=== PATIENT | male | born 1970 | race Caucasian/White ===

== ENCOUNTER → 2016-11-03 | Outpatient (CLI) | payer OTHER ==
--- NOTE | 2016-11-04 09:27 | MR ---
EXAMINATION TYPE: MR brain wo con DATE OF EXAM: 11/03/2016 5:26 PM COMPARISON: NONE HISTORY: Dizziness, hx of multiple head injuries, LOC, forgetfulness COMPARISON: 12/21/2014 CT brain T1-weighted sagittal, T2, FLAIR, and diffusion axial, and T2 coronal coronal views of the brain are s ubmitted. There is no evidence of acute ischemia. The ventricles, basal cisterns, and sulci overlying the conv exities are consistent with the patient's age. There is no mass effect. Craniocervical junction maintained. Sella turcica has a normal appearance. No cerebellopontine angle mass. Changes of chronic sinusitis noted. WHITE MATTER: Approximate 8 areas of abnormal signal within the white matter large is seen within the left parietal white matter measuring 7 mm. No lesions perpendicular to ventricular system. No callosal lesions. IMPRESSION: 1. No acute intracranial process. 2. Mild chronic sinusitis. 3. Very mild white matter changes are nonspecific. BE seen with migraine headaches, hypertension, rem ote microvascular ischemia. Demyelinating process not entirely excluded. Correlate clinically.
== END | disposition home or self-care (01) ==
LOC: RADMRIMAIN 16:32
PROVIDERS: ATTEND Internal Medicine
DX: R55 Syncope and collapse (principal)
CPT/HCPCS: 70551

== ENCOUNTER → 2019-05-09 | Outpatient (CLI) | payer OTHER ==
--- NOTE | 2019-05-09 17:49 | XR ---
EXAMINATION TYPE: XR Hip Complete LT DATE OF EXAM: 05/09/2019 COMPARISON: NONE HISTORY: 48 year-old male left hip pain TECHNIQUE: 2 views FINDINGS: Moderate to severe superolateral narrowing of hip joint space with subchondral sclerosis and cystic c hange especially along the acetabular roof. No acute fracture, subluxation, or dislocation. IMPRESSION: Moderate to severe left hip OA.
== END | disposition home or self-care (01) ==
LOC: RADXRYALE 14:47
PROVIDERS: ATTEND Internal Medicine
DX: M16.12 Unilateral primary osteoarthritis, left hip (principal)
CPT/HCPCS: 73502

== ENCOUNTER → 2019-05-10 | Outpatient (CLI) | payer OTHER ==
--- NOTE | 2019-05-10 11:50 | XR ---
EXAMINATION TYPE: XR lumbosacral spine min 4V DATE OF EXAM: 05/10/2019 CLINICAL HISTORY: pain COMPARISON: NONE TECHNIQUE: Frontal, lateral, and oblique images of the lumbar spine are obtained. FINDINGS: There are 5 lumbar type vertebral bodies identified. The lumbar spine shows satisfactory alignment without evidence of acute fracture or dislocation. Vertebral body heights are within normal limits. Moderate degenerative disc space narrowing and spondylosis. Facet joint arthropathy. The o verlying soft tissue appears unremarkable. IMPRESSION: No acute fracture or dislocation is seen in the lumbar spine.ICD 10 NO FRACTURE, INITIAL EVALUATION
== END | disposition home or self-care (01) ==
LOC: RADXRYALE 11:31
PROVIDERS: ATTEND Internal Medicine
DX: M54.5 Low back pain (principal)
CPT/HCPCS: 72110

== ENCOUNTER → 2019-09-22 | Outpatient (CLI) | payer OTHER ==
--- NOTE | 2019-09-22 16:18 | XR ---
EXAMINATION TYPE: XR sacroiliac joint comp BILAT DATE OF EXAM: 09/22/2019 COMPARISON: NONE HISTORY: Pain TECHNIQUE: 3 views of the SI joints submitted. FINDINGS: Sacroiliac joints are symmetric bilaterally. No evidence for abnormal widening or narrowing . No fracture or bony destructive process seen. Large geode formation supra-acetabular region left hi p with moderate disc degenerative change noted. IMPRESSION: No evidence for sacroiliitis.
== END | disposition home or self-care (01) ==
LOC: RADXRYALE 15:27
DX: M54.9 Dorsalgia, unspecified (principal); R76.8 Other specified abnormal immunological findings in serum
CPT/HCPCS: 72202

== ENCOUNTER 2019-10-14 10:57 | Emergency (ER) | payer OTHER ==
[2019-10-14 11:06] VITALS: RESP 16; TEMP 97.9
[2019-10-14] MEDS ORDERED: ONDANSETRON 4 MG/2 ML VIAL IVP STA (11:19)
[2019-10-14] MEDS ORDERED: KETOROLAC 30 MG/ML 1 ML VIAL IVP STA (11:19)
[2019-10-14] MEDS ORDERED: SODIUM CHLORIDE 0.9% 1,000 ML IV STA (11:19)
[2019-10-14 11:49] LABS: Basophils % (A) 1 %; Eosinophils # (A) 0.4 k/uL (0-0.7); Eosinophils % (A) 5 %; HCT 46.6 % (39.0-53.0); HGB 15.2 gm/dL (13.0-17.5); Lymphocytes # (A) 1.5 k/uL (1.0-4.8); Lymphocytes % (A) 19 %; MCH 26.6 pg (25.0-35.0); MCHC 32.7 g/dL (31.0-37.0); MCV 81.2 fL (80.0-100.0); Mean Platelet Volume 7.8; Monocytes # (A) 0.6 k/uL (0-1.0); Monocytes % (A) 8 %; Neutrophils # (A) 5.1 k/uL (1.3-7.7); Neutrophils % (A) 66 %; Platelet Count 259 k/uL (150-450); RBC 5.74 m/uL (4.30-5.90); RDW 14.7 % (11.5-15.5); WBC 7.8 k/uL (3.8-10.6)
[2019-10-14 12:13] LABS: Albumin 4.4 g/dL (3.5-5.0); Calcium 9.6 mg/dL (8.4-10.2); Potassium 4.7 mmol/L (3.5-5.1); Total Bilirubin 0.7 mg/dL (0.2-1.3); Total Protein 7.6 g/dL (6.3-8.2)
[2019-10-14 12:18] LABS: Appearance,Urine Clear (Clear); Bilirubin,Urine Negative (Negative); Blood,Urine Negative (Negative); Color,Urine Light Yellow; Glucose,Urine (UA) Negative (Negative); Ketones,Urine Negative (Negative); Leukocyte Esterase,Urine Negative (Negative); Nitrite,Urine Negative (Negative); Protein,Urine Negative (Negative); Specific Gravity,Urine 1.009 (1.001-1.035); Urobilinogen,Urine <2.0 mg/dL (<2.0)
--- NOTE | 2019-10-14 12:20 | ED ---
Abdominal Pain HPI - General Chief Complaint: Abdominal Pain Stated Complaint: poss kidney stone/abdominal pain Time Seen by Provider: 10/14/19 11:14 Source: patient Mode of arrival: ambulatory Limitations: no limitations - History of Present Illness Initial Comments: Patient is a 49-year-old male presenting to emergency Department with complaints of right-sided abdominal pain that started early this morning. Patient states the pain has been intermittent and is mostly on his right side with radiation into his right back. He is also complaining of urinary frequency and urgency. No hematuria. Patient states the pain is very sharp and severe at times and then dissipates. Patient denies any abdominal surgeries. He denies history of kidney stones. He admits to nausea, no vomiting or diarrhea. He denies any fever or chills. Denies chest pain, short of breath. He has no other complaints at this time. Upon arrival to the ER his vital signs are stable. - Related Data Home Medications Medication Instructions Recorded Confirmed Albuterol Inhaler [Ventolin Hfa 2 puff INHALATION RT-QID PRN 12/21/14 12/22/14 Inhaler] Atorvastatin [Lipitor] 40 mg PO HS 12/21/14 12/22/14 Omeprazole [PriLOSEC] 20 mg PO AC-BRKFST 12/21/14 12/21/14 Previous Rx's Medication Instructions Recorded Carvedilol [Coreg] 6.25 mg PO BID-W/MEALS #60 tab 12/23/14 Lisinopril [Zestril] 10 mg PO DAILY #30 tab 12/23/14 Spironolactone [Aldactone] 12.5 mg PO DAILY #30 tab 12/23/14 Ketorolac [Toradol] 10 mg PO Q8HR #15 tab 10/14/19 Ondansetron Odt [Zofran Odt] 4 mg PO Q8HR PRN #10 tab 10/14/19 Tamsulosin [Flomax] 0.4 mg PO DAILY #7 cap 10/14/19 Allergies Allergy/AdvReac Type Severity Reaction Status Date / Time hydromorphone HCl Allergy Confusion Verified 10/14/19 11:06 [From Dilaudid] lidocaine Allergy Unknown Verified 10/14/19 11:06 morphine Allergy Confusion Verified 10/14/19 11:06 Review of Systems ROS Statement: Those systems with pertinent positive or pertinent negative responses have been documented in the HPI. ROS Other: All systems not noted in ROS Statement are negative. Past Medical History Past Medical History: Asthma, Hypertension Additional Past Medical History / Comment(s): ASTHMA, CHF, ELEVATED CHOLESTEROL History of Any Multi-Drug Resistant Organisms: None Reported Past Surgical History: Orthopedic Surgery Additional Past Surgical History / Comment(s): RIGHT KNEE SURGERY, ACL RECONSTRUCTED, Past Anesthesia/Blood Transfusion Reactions: No Reported Reaction Past Psychological History: No Psychological Hx Reported Smoking Status: Never smoker Past Alcohol Use History: None Reported Past Drug Use History: None Reported - Past Family History Father Family Medical History: Congestive Heart Failure (CHF), Coronary Artery Disease (CAD), Diabetes Mellitus Additional Family Medical History / Comment(s): CABG, AT 84, DM Mother Family Medical History: Coronary Artery Disease (CAD) Additional Family Medical History / Comment(s): HEART CONDITION UNSURE OF WHAT General Exam - General Exam Comments Initial Comments: GENERAL: Patient appears to be in mild distress secondary to pain, pacing the room. HEAD: Atraumatic, normocephalic. EYES: Pupils equal round and reactive to light, extraocular movements intact, sclera anicteric, conjunctiva are normal. ENT: TMs normal, nares patent, oropharynx clear without exudates. Moist mucous membranes. NECK: Normal range of motion, supple without lymphadenopathy or JVD. LUNGS: Breath sounds clear to auscultation bilaterally and equal. No wheezes rales or rhonchi. HEART: Regular rate and rhythm without murmurs, rubs or gallops. ABDOMEN: Tender to palpation in the right side of the abdomen, right flank pain. Soft, normoactive bowel sounds. No masses appreciated. : Deferred EXTREMITIES: Normal range of motion, no pitting or edema. No clubbing or cyanosis. NEUROLOGICAL: Normal speech, normal gait. PSYCH: Normal mood, normal affect. SKIN: Warm, Dry, normal turgor, no rashes or lesions noted. Limitations: no limitations Course Vital Signs 10/14/19 10/14/19 11:04 13:31 Temperature 97.9 F 97.9 F Pulse Rate 87 78 Respiratory 16 16 Rate Blood Pressure 117/74 134/71 O2 Sat by Pulse 98 98 Oximetry Medical Decision Making - Medical Decision Making Patient is a 49-year-old male presenting to emergency Department with complaints of right-sided flank pain abdominal pain started suddenly today. Vital signs are normal. Clinical presentation is a right kidney stone. Lab work shows no signs of infection, BUN is slightly up at 23. Urine is normal, no infection. CT of the abdomen shows a 4 mm calcification in the distal ureter vesicle junction on the right side. There is also bilateral nonobstructing renal stones. Patient was given fluids as well as Toradol reports improvement in his symptoms. I discussed these findings with the patient. Patient is stable for discharge. He'll be sent home with Toradol, Flomax, Zofran for her symptoms. He will follow up with urology. He is agreement with this plan of care. Return parameters were discussed with the patient he verbalizes understanding. Case discussed with Dr. Perales. - Lab Data Result diagrams: 10/14/19 11:35 10/14/19 11:35 Lab Results 10/14/19 10/14/19 10/14/19 Range/Units 11:35 11:35 11:35 WBC 7.8 (3.8-10.6) k/uL RBC 5.74 (4.30-5.90) m/uL Hgb 15.2 (13.0-17.5) gm/dL Hct 46.6 (39.0-53.0) % MCV 81.2 (80.0-100.0) fL MCH 26.6 (25.0-35.0) pg MCHC 32.7 (31.0-37.0) g/dL RDW 14.7 (11.5-15.5) % Plt Count 259 (150-450) k/uL Neutrophils % 66 % Lymphocytes % 19 % Monocytes % 8 % Eosinophils % 5 % Basophils % 1 % Neutrophils # 5.1 (1.3-7.7) k/uL Lymphocytes # 1.5 (1.0-4.8) k/uL Monocytes # 0.6 (0-1.0) k/uL Eosinophils # 0.4 (0-0.7) k/uL Basophils # 0.0 (0-0.2) k/uL Sodium 138 (137-145) mmol/L Potassium 4.7 (3.5-5.1) mmol/L Chloride 104 (98-107) mmol/L Carbon Dioxide 24 (22-30) mmol/L Anion Gap 10 mmol/L BUN 23 H (9-20) mg/dL Creatinine 1.24 (0.66-1.25) mg/dL Est GFR (CKD-EPI)AfAm 80 (>60 ml/min/1.73 sqM) Est GFR (CKD-EPI)NonAf 69 (>60 ml/min/1.73 sqM) Glucose 104 H (74-99) mg/dL Calcium 9.6 (8.4-10.2) mg/dL Total Bilirubin 0.7 (0.2-1.3) mg/dL AST 26 (17-59) U/L ALT 25 (4-49) U/L Alkaline Phosphatase 60 (38-126) U/L Total Protein 7.6 (6.3-8.2) g/dL Albumin 4.4 (3.5-5.0) g/dL Lipase 155 (23-300) U/L Urine Color Light Yellow Urine Appearance Clear (Clear) Urine pH 5.0 (5.0-8.0) Ur Specific [place] 1.009 (1.001-1.035) Urine Protein Negative (Negative) Urine Glucose (UA) Negative (Negative) Urine Ketones Negative (Negative) Urine Blood Negative (Negative) Urine Nitrite Negative (Negative) Urine Bilirubin Negative (Negative) Urine Urobilinogen <2.0 (<2.0) mg/dL Ur Leukocyte Esterase Negative (Negative) Disposition Clinical Impression: Kidney stone on right side, Nausea Disposition: HOME SELF-CARE Condition: Stable Instructions (If sedation given, give patient instructions): Kidney Stones (ED) Additional Instructions: Please return to the Emergency Department if symptoms worsen or any other concerns. Take medications as prescribed. Follow up with urology as discussed. Prescriptions: Tamsulosin [Flomax] 0.4 mg PO DAILY #7 cap Ketorolac [Toradol] 10 mg PO Q8HR #15 tab Ondansetron Odt [Zofran Odt] 4 mg PO Q8HR PRN #10 tab PRN Reason: Nausea Is patient prescribed a controlled substance at d/c from ED?: No Referrals: Shyanne Jordan MD [Primary Care Provider] - 1-2 days Ken Liang MD [STAFF PHYSICIAN] - 1-2 days
--- NOTE | 2019-10-14 12:48 | CT ---
EXAMINATION TYPE: CT abdomen pelvis wo con DATE OF EXAM: 10/14/2019 COMPARISON: None INDICATION: Right sided abdominal pain. DLP: 1019.4 mGycm, Automated exposure control for dose reduction was used. CONTRAST: mL of . Study performed without Oral Contrast TECHNIQUE: Axial images were obtained from above the diaphragm to the pubic rami in the axial plane a t 5 mm thick sections. Reconstructed images are reviewed on the computer in the coronal plane. FINDINGS: Limited CT sections are obtained the lung bases. The lung bases are clear. CT ABDOMEN: Liver: Normal Spleen: Normal Pancreas: Normal Adrenal glands: The adrenal glands are normal. Gallbladder: Normal Kidneys: No masses are evident. There is minimal right hydronephrosis and hydroureter. Hydroureter ex tends to the urinary bladder No cysts are present. Multiple bilateral renal stones are present without obstruction. This includes a 0.4 similar calcific ation anterior inferior right kidney, a 0.3 cm lateral upper pole left kidney nonobstructing renal st one, and anterior lateral 0.3 cm calcification left kidney, 0.2 cm anterior left renal stone. No left hydroureter is evident. Aorta: Vascular calcification is within the aorta. Inferior vena cava: Normal. CT PELVIS: Loops of bowel within the abdomen and pelvis are normal. There is some limited contrast within th e bowel loops. Bowel study however is essentially noncontrast limitation on evaluation. Appendix: Not identified. No suspicious inflammatory changes or dilated tubular structures are eviden t. Urinary bladder: There is a 0.4 cm calcification at the right ureterovesical junction. This may be re cent passage of a partially obstructing Genitourinary structures: Prostate has slight prominence. Osseous structures: No suspicious lytic or sclerotic lesions. IMPRESSIONS: 1. Recent passage of a 0.4 cm calcification to the urinary bladder. A distal ureteral vesicle juncti on stone with partial obstruction is within the differential. 2. Bilateral nonobstructing renal stones
[2019-10-14 13:32] VITALS: BP 134/71; PULSE 78
== END 2019-10-14 13:31 | disposition home or self-care (01) ==
LOC: EC 10:57
DX: N20.0 Calculus of kidney (principal); J45.909 Unspecified asthma, uncomplicated; E78.00 Pure hypercholesterolemia, unspecified; I11.0 Hypertensive heart disease with heart failure; I50.9 Heart failure, unspecified; Z79.899 Other long term (current) drug therapy; Z88.5 Allergy status to narcotic agent; Z88.4 Allergy status to anesthetic agent
CPT/HCPCS: 36415; 80053; 83690; 85025; 81003; 74176; 99284; 96374; 96375; 96361 ×2; J2405; J1885

== ENCOUNTER → 2023-01-01 | Outpatient (CLI) | payer OTHER | END | disposition home or self-care (01) | LOC: RADXRMAIN 18:30 | PROVIDERS: ATTEND Family Medicine | DX: Z53.9 Procedure and treatment not carried out, unspecified reason (principal) ==

== ENCOUNTER → 2023-01-02 | Outpatient (CLI) | payer OTHER ==
--- NOTE | 2023-01-03 05:03 | XR ---
EXAMINATION TYPE: XR hand complete LT DATE OF EXAM: 01/02/2023 CLINICAL HISTORY: Unspecified injury with pain TECHNIQUE: Frontal, lateral and oblique images of the left hand are obtained. COMPARISON: None. FINDINGS: There is no acute fracture/dislocation evident in the left hand. Mild narrowing throughout the PIP and DIP joints of the phalanges. Mild to moderate narrowing at the base of first metacarpal. The overlying soft tissue appears unremarkable. IMPRESSION: There is no acute fracture or dislocation in the left hand.
== END | disposition home or self-care (01) ==
LOC: RADXRMAIN 16:40
PROVIDERS: ATTEND Family Medicine
DX: S69.92XA Unspecified injury of left wrist, hand and finger(s), initial encounter (principal)

== ENCOUNTER 2023-07-08 15:35 | Emergency (ER) | payer BC, OTHER ==
--- NOTE | 2023-07-08 15:42 | ED ---
General Adult HPI - General Source: patient, RN notes reviewed Mode of arrival: wheelchair Limitations: no limitations <Lukasz Hobbs - Last Filed: 07/08/23 15:41> <Kaz Turcios - Last Filed: 07/08/23 19:06> - General Stated complaint: right knee pain-poss blood clot-sent from [facility] Time Seen by Provider: 07/08/23 15:41 - History of Present Illness Initial comments: 52-year-old male presents emergency Department with chief complaint of right leg pain, swelling. Patient states that he had knee surgery states he was at physical therapy today and is concerned that he may have a blood clot as he has increasing swelling. Patient denies any chest pain or shortness of breath. (Lukasz Hobbs) Dictation was produced using [employer] dictation software. please excuse any grammatical, word or spelling errors. Chief Complaint: 52-year-old male sent in by physical therapy for rule out DVT History of Present Illness: [id number] in by his physical therapist for concerns of DVT. He was doing manual therapy when he all of a sudden he felt a cord in his upper proximal posterior knee. He is told to come to the ER for concerns of a DVT no chest pain or shortness of breath. Denies any leg swelling or calf swelling. The ROS documented in this emergency department record has been reviewed and confirmed by me. Those systems with pertinent positive or negative responses have been documented in the HPI. All other systems are other negative and/or noncontributory. (Kaz Turcios) - Related Data Home Medications Medication Instructions Recorded Confirmed Albuterol Inhaler [Ventolin Hfa 2 puff INHALATION RT-QID PRN 12/21/14 12/22/14 Inhaler] Atorvastatin [Lipitor] 40 mg PO HS 12/21/14 12/22/14 Omeprazole [PriLOSEC] 20 mg PO AC-BRKFST 12/21/14 12/21/14 Previous Rx's Medication Instructions Recorded Spironolactone [Aldactone] 12.5 mg PO DAILY #30 tab 12/23/14 carvediloL [Coreg] 6.25 mg PO BID-W/MEALS #60 tab 12/23/14 lisinopriL [Zestril] 10 mg PO DAILY #30 tab 12/23/14 Ketorolac [Toradol] 10 mg PO Q8HR #15 tab 10/14/19 Ondansetron Odt [Zofran Odt] 4 mg PO Q8HR PRN #10 tab 10/14/19 Tamsulosin [Flomax] 0.4 mg PO DAILY #7 cap 10/14/19 Allergies Allergy/AdvReac Type Severity Reaction Status Date / Time hydromorphone HCl Allergy Confusion Verified 10/14/19 11:06 [From Dilaudid] lidocaine Allergy Unknown Verified 10/14/19 11:06 morphine Allergy Confusion Verified 10/14/19 11:06 Review of Systems ROS Other: All systems not noted in ROS Statement are negative. <Lukasz Hobbs - Last Filed: 07/08/23 15:41> ROS Other: All systems not noted in ROS Statement are negative. <Kaz Turcios - Last Filed: 07/08/23 19:06> ROS Statement: Those systems with pertinent positive or pertinent negative responses have been documented in the HPI. Past Medical History Past Medical History: Asthma, Hypertension Additional Past Medical History / Comment(s): ASTHMA, CHF, ELEVATED CHOLESTEROL History of Any Multi-Drug Resistant Organisms: None Reported Past Surgical History: Orthopedic Surgery Additional Past Surgical History / Comment(s): RIGHT KNEE SURGERY, ACL RECONSTRUCTED, Past Anesthesia/Blood Transfusion Reactions: No Reported Reaction Past Psychological History: No Psychological Hx Reported Past Alcohol Use History: None Reported Past Drug Use History: None Reported - Past Family History Father Family Medical History: Congestive Heart Failure (CHF), Coronary Artery Disease (CAD), Diabetes Mellitus Additional Family Medical History / Comment(s): CABG, AT 84, DM Mother Family Medical History: Coronary Artery Disease (CAD) Additional Family Medical History / Comment(s): HEART CONDITION UNSURE OF WHAT <Lukasz Hobbs - Last Filed: 07/08/23 15:41> General Exam <Lukasz Hobbs - Last Filed: 07/08/23 15:41> <Kaz Turcios - Last Filed: 07/08/23 19:06> - General Exam Comments Initial Comments: Visual Physical Exam Vital signs reviewed General: Well-appearing, nontoxic, no acute distress. Head: Normocephalic, atraumatic Eyes: PERRLA, EOMI ENT: Airway patent Chest: Nonlabored breathing Skin: No visual rash, normal skin tone Neuro: Alert and oriented 3 Musculoskeletal: No gross abnormalities (Lukasz Hobbs) PHYSICAL EXAM: General Impression: Alert and oriented x3, not in acute distress HEENT: Normocephalic atraumatic, extra-ocular movements intact, pupils equal and reactive to light bilaterally, mucous membranes moist. Cardiovascular: Heart regular rate and rhythm Chest: Able to complete full sentences, no retractions, no tachypnea Musculoskeletal: Pulses present and equal in all extremities, no peripheral edema Motor: no focal deficits noted Neurological: CN II-XII grossly intact, no focal motor or sensory deficits noted Skin: Intact with no visualized rashes Psych: Normal affect and mood (Kaz Turcios) Course Vital Signs 07/08/23 15:44 Temperature 97.5 F L Pulse Rate 105 H Respiratory 20 Rate Blood Pressure 123/83 O2 Sat by Pulse 95 Oximetry Medical Decision Making <Lukasz Hobbs - Last Filed: 07/08/23 15:41> <Kaz Turcios - Last Filed: 07/08/23 19:06> - Medical Decision Making I completed the quick note portion of this chart signed Lukasz Hobbs PA-C (Lukasz Hobbs) Was pt. sent in by a medical professional or institution ([employer], [facility], urgent care, hospital, or snf...) When possible be specific @ -No Did you speak to anyone other than the patient for history (EMS, parent, family, police, friend...)? What history was obtained from this source @ -No Did you review nursing and triage notes (agree or disagree)? Why? @ -I reviewed and agree with nursing and triage notes Were old charts reviewed (outside hosp., previous admission, EMS record, old EKG, old radiological studies, urgent care reports/EKG's, snf records)? Report findings @ -No old charts were reviewed Differential Diagnosis (chest pain, altered mental status, abdominal pain women, abdominal pain men, vaginal bleeding, musculoskeletal, weakness, fever, dyspnea, syncope, headache, dizziness, GI bleed, back pain, seizure, CVA, palpatations, mental health)? @ -not applicable EKG interpreted by me (3pts min.). @ -None done X-rays interpreted by me (1pt min.). @ -None done CT interpreted by me (1pt min.). @ -None done U/S interpreted by me (1pt. min.). @ -None done What testing was considered but not performed or refused? (CT, X-rays, U/S, labs)? Why? @ -None What meds were considered but not given or refused? Why? @ -None Did you discuss the management of the patient with other professionals (professionals i.e. , PA, [employer], lab, RT, psych nurse, forensic social worker, statistical reporting analyst, teacher, gifts officer, piano case and bench assembler)? Give summary @ -No Was smoking cessation discussed for >3mins.? @ -No Was critical care preformed (if so, how long)? @ -No Were there social determinants of health that impacted care today? How? (Homelessness, low income, unemployed, alcoholism, drug addiction, transportation, low edu. Level, literacy, decrease access to med. care, [facility], rehab)? @ -No Was there de-escalation of care discussed even if they declined (Discuss DNR or withdrawal of care, Hospice)? DNR status @ -No What co-morbidities impacted this encounter? (DM, HTN, Smoking, COPD, CAD, Cancer, CVA, ARF, Chemo, Hep., AIDS, mental health diagnosis, sleep apnea, morbid obesity)? @ -None Was patient admitted / discharged? Hospital course, mention meds given and route, prescriptions, significant lab abnormalities, going to OR and other pertinent info. @ -52-year-old male sent in by physical therapist for concerns of right lower extremity DVT. And his recent history of right total knee replacement. Vital signs stable. Patient well-appearing. Ultrasound is negative for DVT. Patient discharged Undiagnosed new problem with uncertain prognosis? @ -No Drug Therapy requiring intensive monitoring for toxicity (Heparin, Nitro, Insulin, Cardizem)? @ -No Were any procedures done? @ -No Diagnosis/symptom? Acute, or Chronic, or Acute on Chronic? Uncomplicated (without systemic symptoms) or Complicated (systemic symptoms)? @ -Rule out DVT Side effects of treatment? @ -No Exacerbation, Progression, or Severe Exacerbation? @ -No Poses a threat to life or bodily function? How? (Chest pain, [place], [place], pneumonia, PE, COPD, DKA, ARF, appy, cholecystitis, CVA, Diverticulitis, Homicidal, Suicidal, threat to staff... and all critical care pts) @ -No (Kaz Turcios) Disposition <Lukasz Hobbs - Last Filed: 07/08/23 15:41> Is patient prescribed a controlled substance at d/c from ED?: No Time of Disposition: 19:04 <Kaz Turcios - Last Filed: 07/08/23 19:06> Clinical Impression: Leg pain Disposition: HOME SELF-CARE Condition: Good Instructions (If sedation given, give patient instructions): Leg Pain (ED) Referrals: Jimmie Almeida MD [Primary Care Provider] - 1-2 days
[2023-07-08 16:15] VITALS: BP 123/83; PULSE 105; RESP 20; TEMP 97.5
--- NOTE | 2023-07-08 16:26 | US ---
EXAMINATION TYPE: US venous doppler duplex LE RT DATE OF EXAM: 07/08/2023 4:15 PM COMPARISON: NONE CLINICAL INDICATION: Male, 52 years old with history of pain; Right leg pain s/p right total knee SIDE PERFORMED: Right TECHNIQUE: The lower extremity deep venous system is examined utilizing real time linear array sonog yonny with graded compression, doppler sonography and color-flow sonography. VESSELS IMAGED: Common Femoral Vein Deep Femoral Vein Greater Saphenous Vein * Femoral Vein Popliteal Vein Small Saphenous Vein * Proximal Calf Veins (* superficial vessels) Right Leg: Pt unable to tolerate compressions right groin to distal femoral vein, however color flow was visualized Visualized portions appeared negative for DVT IMPRESSION: No evidence of deep venous thrombosis.
== END 2023-07-08 19:30 | disposition home or self-care (01) ==
LOC: EC 15:35
DX: M79.604 Pain in right leg (principal); I10 Essential (primary) hypertension; J45.909 Unspecified asthma, uncomplicated; Z88.5 Allergy status to narcotic agent; Z88.8 Allergy status to other drugs, medicaments and biological substances
CPT/HCPCS: 99283

== ENCOUNTER → 2023-10-07 | Outpatient (CLI) | payer BC, OTHER ==
--- NOTE | 2023-10-07 14:16 | XR ---
EXAMINATION TYPE: XR chest 2V DATE OF EXAM: 10/07/2023 COMPARISON: 12/21/2014 HISTORY: 53-year-old male J4 0, bronchitis TECHNIQUE: Frontal and lateral views FINDINGS: Heart mildly enlarged. Aorta and pulmonary vasculature are within normal limits. Hazy lung densities relating to overlying soft tissue. No mare consolidation or pleural effusion. IMPRESSION: Mild cardiomegaly. Otherwise, no definite acute process.
== END | disposition home or self-care (01) ==
LOC: LABWHC1 13:20
PROVIDERS: ATTEND Family Medicine
DX: J40 Bronchitis, not specified as acute or chronic (principal)
CPT/HCPCS: 71046

== ENCOUNTER 2024-10-19 12:38 | Observation (INO) | payer BC ==
[2024-10-19 12:47] LABS: Glucose,Whole Blood 115 mg/dL (70-110)
--- NOTE | 2024-10-19 13:07 | ED ---
General Adult HPI - General Chief complaint: Neuro Symptoms/Deficit Stated complaint: neuro symptoms Time Seen by Provider: 10/19/24 12:42 Source: patient, EMS Mode of arrival: EMS - History of Present Illness Initial comments: Dictation was produced using [employer] dictation software. please excuse any grammatical, word or spelling errors. Chief Complaint: 54-year-old male with extensive cardiac history presents to the ER for strokelike symptoms History of Present Illness: Patient he 4-year-old male he was last normal at around 8:00 to 8:20 AM. States that when he woke up he did not feel right started to feel what he describes as dizzy with a left periorbital ache. He s tates that he did have some left facial droop seem to be a little confused. Patient states his symptoms lasted until around 12:20 PM. He was brought to the ER by EMS and his symptoms had resolved. The ROS documented in this emergency department record has been reviewed and confirmed by me. Those systems with pertinent positive or negative responses have been documented in the HPI. All other systems are other negative and/or noncontributory. - Related Data Home Medications Medication Instructions Recorded Confirmed Albuterol Inhaler [Ventolin Hfa 2 puff INHALATION RT-QID PRN 12/21/14 10/19/24 Inhaler] Albuterol Nebulized [Ventolin 2.5 mg INHALATION RT-QID PRN 10/19/24 10/19/24 Nebulized] Azelastine HCl [Astelin Nasal 1 spr EA NOSTRIL BID 10/19/24 10/19/24 [place]] Bumetanide [BUMEX] 6 mg PO BID@0900,1600 10/19/24 10/19/24 Eplerenone 50 mg PO DAILY 10/19/24 10/19/24 Ferrous Sulfate [Feosol] 325 mg PO DAILY 10/19/24 10/19/24 Fluticasone/Umeclidin/Vilanter 1 puff INHALATION RT-DAILY 10/19/24 10/19/24 [Trelegy Ellipta 200-62.5-25] Magnesium Oxide [Mag-Ox] 400 mg PO DAILY 10/19/24 10/19/24 Metoprolol Succinate (ER) [Toprol 50 mg PO BID 10/19/24 10/19/24 Xl] Omeprazole Magnesium [PriLOSEC OTC] 20 mg PO DAILY 10/19/24 10/19/24 Potassium Chloride ER [K-Dur 20] 20 meq PO DAILY 10/19/24 10/19/24 Sacubitril/Valsartan [Entresto 97 1 tab PO BID 10/19/24 10/19/24 mg-103 mg Tablet] Sodium Chloride [Saline Nasal Mist] 1 spr EA NOSTRIL DAILY PRN 10/19/24 10/19/24 Allergies Allergy/AdvReac Type Severity Reaction Status Date / Time hydromorphone HCl Allergy Confusion Verified 10/19/24 16:52 [From Dilaudid] lidocaine Allergy Unknown Verified 10/19/24 16:52 morphine Allergy Confusion Verified 10/19/24 16:52 carvedilol [From Coreg] AdvReac suicidal Verified 10/19/24 16:52 thoughts while taking, resolved after stopped takin empagliflozin AdvReac suicidal Verified 10/19/24 16:52 [From Jardiance] thoughts while taking, resolved after stopped takin Review of Systems ROS Statement: Those systems with pertinent positive or pertinent negative responses have been documented in the HPI. ROS Other: All systems not noted in ROS Statement are negative. Past Medical History Past Medical History: Asthma, Heart Failure, Hypertension Additional Past Medical History / Comment(s): ASTHMA, CHF, ELEVATED CHOLESTEROL History of Any Multi-Drug Resistant Organisms: None Reported Past Surgical History: Hernia Repair, Joint Replacement, Orthopedic Surgery Additional Past Surgical History / Comment(s): RIGHT KNEE SURGERY, ACL RECONSTRUCTED, left hip replacement Past Anesthesia/Blood Transfusion Reactions: No Reported Reaction Past Psychological History: No Psychological Hx Reported Smoking Status: Never smoker Past Alcohol Use History: None Reported Past Drug Use History: None Reported - Past Family History Father Family Medical History: Congestive Heart Failure (CHF), Coronary Artery Disease (CAD), Diabetes Mellitus Additional Family Medical History / Comment(s): CABG, AT 84, DM Mother Family Medical History: Coronary Artery Disease (CAD) Additional Family Medical History / Comment(s): HEART CONDITION UNSURE OF WHAT General Exam - General Exam Comments Initial Comments: PHYSICAL EXAM: General Impression: Alert and oriented x3, not in acute distress HEENT: Normocephalic atraumatic, extra-ocular movements intact, pupils equal and reactive to light bilaterally, mucous membranes moist. Cardiovascular: Heart regular rate and rhythm Chest: Able to complete full sentences, no retractions, no tachypnea Abdomen: abdomen soft, non-tender, non-distended, no organomegaly Musculoskeletal: Pulses present and equal in all extremities, no peripheral edema Motor: no focal deficits noted Neurological: CN II-XII grossly intact, no focal motor or sensory deficits noted Skin: Intact with no visualized rashes Psych: Normal affect and mood Course Vital Signs 10/19/24 10/19/24 10/19/24 12:42 14:22 15:00 Temperature 97.3 F L Pulse Rate 89 90 94 Respiratory 20 18 18 Rate Blood Pressure 124/93 117/78 115/96 O2 Sat by Pulse 97 97 Oximetry 10/19/24 10/19/24 15:40 17:33 Temperature Pulse Rate 91 90 Respiratory 12 16 Rate Blood Pressure 115/82 115/83 O2 Sat by Pulse 99 98 Oximetry EKG Findings - EKG Comments: EKG Findings:: My EKG interpretation: Ventricular rate 86, sinus rhythm,. 180, QRS 91, QTc 399. No WI prolongation, no QTC prolongation, no ST or T-wave changes noted. Overall, this EKG is unremarkable Medical Decision Making - Medical Decision Making Was pt. sent in by a medical professional or institution (, PA, SOFTWARE INTEGRATOR, urgent care, hospital, or long term...) When possible be specific @ -No Did you speak to anyone other than the patient for history (EMS, parent, family, police, friend...)? What history was obtained from this source @ -No Did you review nursing and triage notes (agree or disagree)? Why? @ -I reviewed and agree with nursing and triage notes Were old charts reviewed (outside hosp., previous admission, EMS record, old EKG, old radiological studies, urgent care reports/EKG's, long term records)? Report findings @ -No old charts were reviewed Differential Diagnosis (chest pain, altered mental status, abdominal pain women, abdominal pain men, vaginal bleeding, musculoskeletal, weakness, fever, dyspnea, syncope, headache, dizziness, GI bleed, back pain, seizure, CVA, palpatations, mental health)? @ - Differential CVA: Ischemic stroke, hemorrhagic stroke, brain tumor, atypical migraine, Wernicke's encephalopathy, seizure, multiple sclerosis, meningitis, encephalitis, hypoglycemia, Guillain-Lai, electrolytes disturbance, myasthenia gravis.... This is not meant to be an all-inclusive list EKG interpreted by me (3pts min.). @ -See above X-rays interpreted by me (1pt min.). @ -Chest x-ray is nonacute CT interpreted by me (1pt min.). @ -Brain CT angiography of the head and neck shows no acute processes U/S interpreted by me (1pt. min.). @ -None done What testing was considered but not performed or refused? (CT, X-rays, U/S, labs)? Why? @ -None What meds were considered but not given or refused? Why? @ -None Was smoking cessation discussed for >3mins.? @ -No Were there social determinants of health that impacted care today? How? (Homelessness, low income, unemployed, alcoholism, drug addiction, transportation, low edu. Level, literacy, decrease access to med. care, penitentiary, rehab)? @ -No Was there de-escalation of care discussed even if they declined (Discuss DNR or withdrawal of care, Hospice)? DNR status @ -No What co-morbidities impacted this encounter? (DM, HTN, Smoking, COPD, CAD, Cancer, CVA, ARF, Chemo, Hep., AIDS, mental health diagnosis, sleep apnea, morbid obesity)? @ -HF, hypertension asthma Was patient admitted / discharged? Hospital course, mention meds given and route, prescriptions, significant lab abnormalities, going to OR and other pertinent info. @ -54-year-old male with cardiac morbidities presents to the ER for transient ischemic attack. Vital signs stable. Patient asymptomatic at the bedside. NIH 0 upon initial evaluation. Labs are unremarkable. Imaging studies are negati ve. Patient high risk will be admitted consultation to neurology. Case discussed with hospitalist for admission Did you discuss the management of the patient with other professionals (professionals i.e. , PA, SOFTWARE INTEGRATOR, lab, RT, psych nurse, social media marketing analyst, shorthand reporter, teacher, aoc aadc operations staff officer, therapeutic case manager)? Give summary @ -No Was critical care preformed (if so, how long)? @ -No Undiagnosed new problem with uncertain prognosis? @ -No Drug Therapy requiring intensive monitoring for toxicity (Heparin, Nitro, Insulin, Cardizem)? @ -No Were any procedures done? @ -No Diagnosis/symptom? Acute, or Chronic, or Acute on Chronic? Uncomplicated (without systemic symptoms) or Complicated (systemic symptoms)? @ -Transient ischemic attack Side effects of treatment? @ -No Exacerbation, Progression, or Severe Exacerbation? @ -No Poses a threat to life or bodily function? How? (Chest pain, [place], [place], pneumonia, PE, COPD, DKA, ARF, appy, cholecystitis, CVA, Diverticulitis, Homicidal, Suicidal, threat to staff... and all critical care pts) @ -yes - Lab Data Result diagrams: 10/19/24 12:55 10/19/24 12:55 Lab Results 10/19/24 10/19/24 10/19/24 Range/Units 12:45 12:55 12:55 WBC 7.1 (3.8-10.6) k/uL RBC 6.79 H (4.30-5.90) m/uL Hgb 15.7 (13.0-17.5) gm/dL Hct 52.2 (39.0-53.0) % MCV 76.9 L (80.0-100.0) fL MCH 23.2 L (25.0-35.0) pg MCHC 30.1 L (31.0-37.0) g/dL RDW 19.4 H (11.5-15.5) % Plt Count 223 (150-450) k/uL MPV 8.0 Neutrophils % 71 % Lymphocytes % 18 % Monocytes % 6 % Eosinophils % 2 % Basophils % 1 % Neutrophils # 5.1 (1.3-7.7) k/uL Lymphocytes # 1.3 (1.0-4.8) k/uL Monocytes # 0.4 (0-1.0) k/uL Eosinophils # 0.1 (0-0.7) k/uL Basophils # 0.1 (0-0.2) k/uL Hypochromasia Marked Anisocytosis Slight Microcytosis Moderate PT 11.7 (10.0-12.5) sec INR 1.1 (<1.2) APTT 24.2 (22.0-30.0) sec Sodium (137-145) mmol/L Potassium (3.5-5.1) mmol/L Chloride (98-107) mmol/L Carbon Dioxide (22-30) mmol/L Anion Gap mmol/L BUN (9-20) mg/dL Creatinine (0.66-1.25) mg/dL Est GFR (CKD-EPI)AfAm (>60 ml/min/1.73 sqM) Est GFR (CKD-EPI)NonAf (>60 ml/min/1.73 sqM) Glucose (74-99) mg/dL POC Glucose (mg/dL) 115 H (70-110) mg/dL POC Glu Platen Drier Operator ID Tray Deng Calcium (8.4-10.2) mg/dL Total Bilirubin (0.2-1.3) mg/dL AST (17-59) U/L ALT (4-49) U/L Alkaline Phosphatase (38-126) U/L Creatine Kinase (55-170) U/L Troponin I (0.000-0.034) ng/mL Total Protein (6.3-8.2) g/dL Albumin (3.5-5.0) g/dL 10/19/24 10/19/24 Range/Units 12:55 12:55 WBC (3.8-10.6) k/uL RBC (4.30-5.90) m/uL Hgb (13.0-17.5) gm/dL Hct (39.0-53.0) % MCV (80.0-100.0) fL MCH (25.0-35.0) pg MCHC (31.0-37.0) g/dL RDW (11.5-15.5) % Plt Count (150-450) k/uL MPV Neutrophils % % Lymphocytes % % Monocytes % % Eosinophils % % Basophils % % Neutrophils # (1.3-7.7) k/uL Lymphocytes # (1.0-4.8) k/uL Monocytes # (0-1.0) k/uL Eosinophils # (0-0.7) k/uL Basophils # (0-0.2) k/uL Hypochromasia Anisocytosis Microcytosis PT (10.0-12.5) sec INR (<1.2) APTT (22.0-30.0) sec Sodium 138 (137-145) mmol/L Potassium 4.5 (3.5-5.1) mmol/L Chloride 103 (98-107) mmol/L Carbon Dioxide 25 (22-30) mmol/L Anion Gap 10 mmol/L BUN 22 H (9-20) mg/dL Creatinine 0.91 (0.66-1.25) mg/dL Est GFR (CKD-EPI)AfAm >90 (>60 ml/min/1.73 sqM) Est GFR (CKD-EPI)NonAf >90 (>60 ml/min/1.73 sqM) Glucose 114 H (74-99) mg/dL POC Glucose (mg/dL) (70-110) mg/dL POC Glu Platen Drier Operator ID Calcium 9.8 (8.4-10.2) mg/dL Total Bilirubin 0.7 (0.2-1.3) mg/dL AST 28 (17-59) U/L ALT 29 (4-49) U/L Alkaline Phosphatase 51 (38-126) U/L Creatine Kinase 48 L (55-170) U/L Troponin I <0.012 (0.000-0.034) ng/mL Total Protein 7.0 (6.3-8.2) g/dL Albumin 4.1 (3.5-5.0) g/dL Disposition Clinical Impression: Transient cerebral ischemia Disposition: ADMITTED IP TO THIS HOSP Condition: Fair Referrals: Jimmie Almeida MD [Primary Care Provider] - 1-2 days Decision Time: 18:11
[2024-10-19 13:12] LABS: Anisocytosis Slight; Basophils # (A) 0.1 k/uL (0-0.2); Basophils % (A) 1 %; Eosinophils # (A) 0.1 k/uL (0-0.7); Eosinophils % (A) 2 %; HCT 52.2 % (39.0-53.0); HGB 15.7 gm/dL (13.0-17.5); Hypochromasia Marked; Lymphocytes # (A) 1.3 k/uL (1.0-4.8); Lymphocytes % (A) 18 %; MCH 23.2 pg (25.0-35.0); MCHC 30.1 g/dL (31.0-37.0); MCV 76.9 fL (80.0-100.0); Microcytosis Moderate; Monocytes # (A) 0.4 k/uL (0-1.0); Monocytes % (A) 6 %; Neutrophils # (A) 5.1 k/uL (1.3-7.7); Neutrophils % (A) 71 %; Platelet Count 223 k/uL (150-450); RBC 6.79 m/uL (4.30-5.90); RDW 19.4 % (11.5-15.5); WBC 7.1 k/uL (3.8-10.6)
[2024-10-19 13:18] LABS: ALT 29 U/L (4-49); AST 28 U/L (17-59); African American GFR (CKD) >90 (>60 ml/min/1.73 sqM); Albumin 4.1 g/dL (3.5-5.0); Alkaline Phosphatase 51 U/L (38-126); Anion Gap 10 mmol/L; Blood Urea Nitrogen 22 mg/dL (9-20); Calcium 9.8 mg/dL (8.4-10.2); Carbon Dioxide 25 mmol/L (22-30); Chloride 103 mmol/L (98-107); Creatine Kinase 48 U/L (55-170); Glucose 114 mg/dL (74-99); Non-African American GFR(CKD) >90 (>60 ml/min/1.73 sqM); Potassium 4.5 mmol/L (3.5-5.1); Sodium 138 mmol/L (137-145); Total Bilirubin 0.7 mg/dL (0.2-1.3)
[2024-10-19 13:24] LABS: INR 1.1 (<1.2); Partial Thromboplastin Time 24.2 sec (22.0-30.0); Prothrombin Time 11.7 sec (10.0-12.5)
--- NOTE | 2024-10-19 14:13 | CT ---
EXAMINATION TYPE: CT brain wo con DATE OF EXAM: 10/19/2024 COMPARISON: None CLINICAL INDICATION: Male, 54 years old with history of Neuro deficit, acute, stroke suspected; PHH, LEFT SIDE WEAKNESS/ DIFFICULTY SWALLOWING ISO 370 65ML DLP 2550.4 Technique: Multiple axial images were obtained through the head and neck following IV contrast admini stration. The exam was performed according to department CTA protocol. MIPS images were generated and reviewed and 3-D postprocessing was performed CT DLP: 2550.4 combined mGycm Automated exposure control for dose reduction was used. Findings: There is a 3.8 x 2.8 cm complex mass of the left lobe of the thyroid gland neoplasm is not excluded. Correlation with thyroid ultrasound is recommended. Fine-needle aspiration may be indicated. There is no significant stenosis of the common or internal carotid arteries within the neck. There is no significant stenosis or segmental occlusion of the intracerebral arterial circulation. There is no sizable aneurysm sac or vascular malformation. IMPRESSION: 1. No evidence of significant occlusive disease in the head or neck. 2. 2.8 x 3.8 cm complex mass in the left lobe of the thyroid gland. Neoplasm is not excluded and fede elation with thyroid ultrasound is recommended. FNA may be indicated. [facility], Workstation: JIM 10/19/2024 2:11 PM
--- NOTE | 2024-10-19 14:18 | XR ---
EXAMINATION TYPE: XR chest 2V DATE OF EXAM: 10/19/2024 1:42 PM COMPARISON: Chest radiographs from 10/07/2023 CLINICAL INDICATION: Male, 54 years old with history of altered mental status; [facility] TECHNIQUE: XR chest 2V Frontal and lateral views of the chest. FINDINGS: Lungs/Pleura: There is no evidence of pleural effusion, focal consolidation, or pneumothorax. Pulmonary vascularity: Unremarkable. Heart/mediastinum: Cardiomediastinal silhouette is unremarkable. Musculoskeletal: No acute osseous pathology. IMPRESSION: No acute cardiopulmonary disease/process. [facility], , 10/19/2024 2:15 PM
[2024-10-19] MEDS: ASPIRIN 325 MG TAB PO STA (18:48)
[2024-10-20] MEDS: SACUBITRIL/VALSARTAN 97 MG-103 MG TABLET PO SCH ×2 (00:09→11:38)
[2024-10-20] MEDS: METOPROLOL SUCCINATE (ER) 50 MG TAB.ER.24H PO SCH (00:09)
[2024-10-20] MEDS ORDERED: ALBUTEROL NEBULIZED 2.5 MG/3 ML INHALATION PRN ×2 (03:40)
[2024-10-20 08:46] LABS: Chol/HDL Ratio 5.67 Ratio; LDL Cholesterol,Calculated 134.3 mg/dL (0.0-131.0)
[2024-10-20] MEDS: SYMBICORT 160-4.5 MCG INHALER INHALATION SCH (08:51)
[2024-10-20] MEDS: IPRATROPIUM 0.5 MG/2.5 ML NEBU INHALATION SCH (08:51)
[2024-10-20] MEDS ORDERED: SODIUM CHLORIDE 0.65% NASAL SPRAY 44 ML BTL INTRANASAL PRN (09:00)
[2024-10-20] MEDS: ASPIRIN 325 MG TAB PO SCH (09:01)
[2024-10-20] MEDS: AZELASTINE 137MCG/SPRAY EA NOSTRIL SCH (09:01)
[2024-10-20] MEDS: MAGNESIUM OXIDE 400 MG TAB PO SCH (09:02)
[2024-10-20] MEDS: FERROUS SULFATE 325 MG TAB PO SCH (09:02)
[2024-10-20] MEDS: EPLERENONE 25 MG PO SCH (09:02)
[2024-10-20] MEDS: PANTOPRAZOLE 40 MG TABLET PO SCH (09:03)
--- NOTE | 2024-10-20 11:12 | CT ---
EXAMINATION TYPE: CT angio head neck DATE OF EXAM: 10/19/2024 1:59 PM COMPARISON: 10/19/2024. CLINICAL INDICATION: Male, 54 years old with history of Neuro deficit, acute, stroke suspected; PHH, LEFT SIDE WEAKNESS/ DIFFICULTY SWALLOWING ISO 370 65ML DLP 2550.4 TECHNIQUE: Axially acquired helical CT angiogram of the head and neck was obtained with contrast. Axi al images are supplemented with 3D reconstructions and MIP images which were post-processed at an in dependent workstation. NASCET criteria used. Contrast used:65ml mL of Isovue 370 without and with IV Contrast, Oral contrast used: None. CT DLP: 2550.4 mGycm, Automated exposure control for dose reduction was used. FINDINGS: CTA HEAD: No evidence of acute intracranial hemorrhage, mass effect, or midline shift. The ventricles, sulci, a nd cisterns are unremarkable. Vertebral arteries: The vertebral arteries are patent. Vertebral artery dominance: Diminutive left vertebral artery which is poorly visualized in the intrac ranial portion. Dominant right vertebral artery system. Basilar artery: The basilar artery is intact. The basilar artery bifurcation is normal. Internal Carotid arteries: The cervical, petrous, cavernous and supraclinoid segments are normal. DAVID: Patent with no evidence of aneurysm. ACOM: Present without evidence of aneurysm. MCA: Patent with no evidence of aneurysm. DIRECTOR OF QUALITY: Patent with no evidence of aneurysm. PCOM: Hypoplastic bilaterally. Dural sinuses: Patent. CTA NECK: Right Carotid System: The common carotid artery and external carotid artery are patent. The carotid bifurcation demonstrate s no evidence of hemodynamically significant stenosis. The remaining portions of the internal carotid artery demonstrate normal size without significant narrowing. Left Carotid System: The common carotid artery and external carotid artery are patent. The carotid bifurcation demonstrate s no evidence of hemodynamically significant stenosis. The remaining portions of the internal carotid artery demonstrate normal size without significant narrowing. Occlusion of the left vertebral artery from its origin into the high superior cervical spine with rec onstitution at the level of C4. Contrast within the intracranial portion of the left bladder is poorl y visualized. There appears to be possibly collateral filling of the superior portions of the cervica l segments of the left vertebral artery. There is a three-vessel aortic arch. The origins of the great vessels are patent. No evidence of hemo dynamically significant stenosis. Other: Large left thyroid gland suspected measuring up to 38 x 25 x 59 mm IMPRESSION: 1. 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 Diminutive intracranial portion also noted of the le ft vertebral artery possibly occluded as is less contrast in the superior extracranial portions. Marivel nant right vertebral artery system. 2. No evidence of dissection of the cervical internal carotid arteries. 3. No any evidence of significant stenosis at the carotid bifurcations. 4. No evidence of intracranial high-grade stenosis or intracranial aneurysm. 5. Large left thyroid gland nodule/cyst. Measuring up to 59 x 38 x 25 mm. [facility], , 10/20/2024 11:09 AM
--- NOTE | 2024-10-20 14:24 | P.CNNES ---
History of Present Illness Consult date: 10/20/24 Requesting physician: Kaz Turcios Reason for Consult: tia History of Present Illness: This is a 54-year-old gentleman who presented emergency department because of left facial weakness, slurring of speech. Patient stated that he was recently discharged from [facility] and he had a a month of hospital workup for possible cardiac sarcoidosis and he was admitted on September 14 and discharged on October 13, 2024. Seems that yesterday in the morning when he woke up he felt tired, sleepy then later he noticed that his left side of the face was weak. He noticed that he is having difficulty swallowing. As well as his voice felt sounded goofy. He was having left time opening eyes. He did not feel he is speaking clearly. She was speaking coarse. He could not hold himself and felt unsteady. In the ER by time he got here his symptoms started improving. Now he feels back to baseline. Denies any history of stroke. He is supposed to be on aspirin 81 mg but since he was discharged from hospital visit he has not been taking it over the past week. Regarding his workup at their [facility] he had lung biopsies and they are unremarkable. He still needs further workup as an outpatient to rule out cardiac sarcoidosis. He stated that in the for the prolonged period of time he had diagnosis of congestive heart failure. Some of the workup during this hospital visit consisted of: TSH is 0.77 Lipid panel is triglycerides 181, cholesterol 207, LDLs 134 and HDL is 36 I reviewed the rest of the lab workup. CT of the head is reported as no acute bleed or mass effect. Mild chronic inflammatory changes in the maxillary sinus. 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 Diminutive intracranial portion noted of the left vertebral artery possibly occluded and is less contrast in the superior extracranial portion. Dominant right vertebral artery system. No evidence of dissection of cervical internal carotid artery. No any evidence of significant stenosis at the carotid bifurcation. No evidence of intracranial high-grade stenosis or intracranial aneurysm. Left large thyroid gland nodule/cyst. Review of Systems As per HPI. Past Medical History Past Medical History: Asthma, Heart Failure, Hypertension Additional Past Medical History / Comment(s): ASTHMA, CHF, ELEVATED CHOLESTEROL, possible cardiac sarcoidsis and goes to [facility], was hospitalized for 30 days and recently d/c 10/13/24 History of Any Multi-Drug Resistant Organisms: None Reported Past Surgical History: Hernia Repair, Joint Replacement, Orthopedic Surgery Additional Past Surgical History / Comment(s): RIGHT KNEE SURGERY, ACL RECONSTRUCTED, left hip replacement Past Anesthesia/Blood Transfusion Reactions: No Reported Reaction Past Psychological History: No Psychological Hx Reported Smoking Status: Never smoker Past Alcohol Use History: None Reported Past Drug Use History: None Reported - Past Family History Father Family Medical History: Congestive Heart Failure (CHF), Coronary Artery Disease (CAD), Diabetes Mellitus Additional Family Medical History / Comment(s): CABG, AT 84, DM Mother Family Medical History: Coronary Artery Disease (CAD) Additional Family Medical History / Comment(s): HEART CONDITION UNSURE OF WHAT Medications and Allergies Home Medications Medication Instructions Recorded Confirmed Type Albuterol Inhaler [Ventolin Hfa 2 puff INHALATION RT-QID PRN 12/21/14 10/19/24 History Inhaler] Albuterol Nebulized [Ventolin 2.5 mg INHALATION RT-QID PRN 10/19/24 10/19/24 History Nebulized] Azelastine HCl [Astelin Nasal 1 spr EA NOSTRIL BID 10/19/24 10/19/24 History [place]] Bumetanide [BUMEX] 6 mg PO BID@0900,1600 10/19/24 10/19/24 History Eplerenone 50 mg PO DAILY 10/19/24 10/19/24 History Ferrous Sulfate [Feosol] 325 mg PO DAILY 10/19/24 10/19/24 History Fluticasone/Umeclidin/Vilanter 1 puff INHALATION RT-DAILY 10/19/24 10/19/24 History [Trelegy Ellipta 200-62.5-25] Magnesium Oxide [Mag-Ox] 400 mg PO DAILY 10/19/24 10/19/24 History Metoprolol Succinate (ER) [Toprol 50 mg PO BID 10/19/24 10/19/24 History Xl] Omeprazole Magnesium [PriLOSEC OTC] 20 mg PO DAILY 10/19/24 10/19/24 History Potassium Chloride ER [K-Dur 20] 20 meq PO DAILY 10/19/24 10/19/24 History Sacubitril/Valsartan [Entresto 97 1 tab PO BID 10/19/24 10/19/24 History mg-103 mg Tablet] Sodium Chloride [Saline Nasal Mist] 1 spr EA NOSTRIL DAILY PRN 10/19/24 10/19/24 History Allergies Allergy/AdvReac Type Severity Reaction Status Date / Time hydromorphone HCl Allergy Confusion Verified 10/19/24 16:52 [From Dilaudid] lidocaine Allergy Unknown Verified 10/19/24 16:52 morphine Allergy Confusion Verified 10/19/24 16:52 carvedilol [From Coreg] AdvReac suicidal Verified 10/19/24 16:52 thoughts while taking, resolved after stopped takin empagliflozin AdvReac suicidal Verified 10/19/24 16:52 [From Jardiance] thoughts while taking, resolved after stopped takin Physical Examination - Vital Signs Vital Signs: Vital Signs Temp Pulse Pulse Resp BP BP Pulse Ox 10/20/24 08:59 83 18 92/61 93 L 10/20/24 07:00 97.5 F L 81 16 97/65 96 10/19/24 20:39 92 18 123/55 97 10/19/24 20:00 97.5 F L 100 14 130/81 98 10/19/24 17:33 90 16 115/83 98 10/19/24 15:40 91 12 115/82 99 10/19/24 15:00 94 18 115/96 10/19/24 14:22 90 18 117/78 97 Intake and Output 10/19/24 10/20/24 10/20/24 22:59 06:59 14:59 Intake Total 598 Balance 598 Intake: Oral 598 Other: # Voids 1 2 Weight 115.212 kg 118.3 kg GENERAL: The patient is sitting in a recliner chair and is not in acute distress. NEUROLOGICAL: Higher mental function: The patient is awake, alert, oriented to self, place and time. Patient is following commands. No aphasia and no neglect. Cranial nerves: The pupils are round, equal and reactive to light and acc ommodation. Visual ricketts are full to confrontation throughout. Extraocular movement is intact no nystagmus is noted. Facial sensation is normal to touch throughout. The facial strength is normal throughout. Hearing is normal bilaterally to hand rub. Tongue is midline and moved [id number] without any difficulty. No dysarthria is noted. Shoulder shrug is normal bilaterally. Motor: Gait is normal. The strength is 5 over 5 throughout. Normal tone and bulk. Cerebellum: Normal finger to nose h bilaterally. Sensation: Sensation is normal to touch throughout. Reflexes (right/left): 2+ uppers and refused lowers to be performed. Plantars are mute bilaterally. Results - Laboratory Findings CBC and BMP: 10/19/24 12:55 10/19/24 12:55 Abnormal Lab Findings: Abnormal Labs 10/19/24 10/19/24 10/19/24 12:45 12:55 12:55 RBC 6.79 H MCV 76.9 L MCH 23.2 L MCHC 30.1 L RDW 19.4 H BUN 22 H Glucose 114 H POC Glucose (mg/dL) 115 H Creatine Kinase 48 L Triglycerides Cholesterol LDL Cholesterol, Calc HDL Cholesterol 10/19/24 12:55 RBC MCV MCH MCHC RDW BUN Glucose POC Glucose (mg/dL) Creatine Kinase Triglycerides 181.00 H Cholesterol 207.00 H LDL Cholesterol, Calc 134.3 H HDL Cholesterol 36.50 L Assessment and Plan Assessment: This is a 54-year-old gentleman who present emergency department because of left facial droop, slurring the speech and unsteady walk. His symptoms has resolved. CT head is unremarkable for any acute stroke. CT angiography shows left vertebral artery occlusion from the origin to the C4. 3 transient ischemic attack Occluded left vertebral artery on the CT angiography Underlying history of congestive heart failure and the patient is in the process of further workup to rule out cardiac sarcoidosis by the [facility] cardiology team. He had a lung biopsy which according to the patient was unremarkable. Plan: I ordered MRI of the brain with and without Patient was given aspirin 325 once in the ED then was started on aspirin 325 daily but changed to his home dose of aspirin 81 mg daily. He has not been taking his medication for 7 days. Will avoid dual antiplatelet especially that he needs further extensive workup for cardiac especially biopsy. I will not start the patient on any statin since in the past he had patent joints. Continue neurochecks Cardiac monitoring PT OT and AIR FORCE SENIOR OFFICER are consulted since patient is ambulatory and has no focal deficit but if he does we will consult them For DVT prophylaxis patient is ambulatory Upon discharge recommend the patient to follow-up with a neurologist as an outpatient within 2 to 3 weeks Plan discussed with the patient in detail as well as the primary team nurse practitioner Thank you for the consultation. Time with Patient: Greater than 30
[2024-10-20] MEDS ORDERED: POTASSIUM CHLORIDE ER 20 MEQ TAB.ER PO PRN (14:55)
--- NOTE | 2024-10-20 15:22 | P.HPIM ---
History of Present Illness H&P Date: 10/20/24 This is a pleasant 54-year-old male who presented to the emergency department with left-sided facial droop along with arthralgia, aphasia, and left sided upper and lower extremity weakness with inability to ambulate with concerns of TIA versus CVA. Patient follows with Dr. Pitts in the outpatient setting with a past medical history of asthma, heart failure, hypertension, hyperlipidemia, currently undergoing further workup regarding possible cardiac sarcoidosis at [facility], morbid obesity. Patient denies smoking alcohol or any illicit drug use. Patient reports shortly after arriving via EMS to the ER symptoms had resolved. Patient WBC at 7.1, hemoglobin was 15.7, plate lets 223, sodium 138, potassium 4.5, BUN 22 with a creatinine of 0.91, liver functions within normal limits, troponin negative at 0.012, triglycerides elevated along with cholesterol and TSH was 0.777. Patient did undergo CT brain and impression was no acute bleed or mass effect with mild chronic inflammatory changes in the maxillary sinuses. CT angio was also performed with no evidence of acute intracranial hemorrhage, mass effect, or midline shift and there is an occluded left vertebral artery from its origin to C4 where there is a suspected backfilling from the intracranial portion endotracheal collaterals with no evidence of dissection of the cervical internal carotid arteries no evidence of significant stenosis at the carotid bifurcations and no evidence of intracranial high-grade stenosis or aneurysm. There is a incidental finding of a large left thyroid gland nodule cyst measuring 59 x 38 x 25 mm. Patient reports he did have thyroid enlargement and is following in the outpatient setting regarding these findings. Patient was admitted under observation with neurology on [facility]. REVIEW OF SYSTEMS: CONSTITUTIONAL: No fever, no malaise, no fatigue. HEENT: No recent visual problems or hearing problems. Denied any sore throat. CARDIOVASCULAR: No chest pain, orthopnea, PND, no palpitations, no syncope. PULMONARY: No shortness of breath, no cough, no hemoptysis. GASTROINTESTINAL: No diarrhea, no nausea, no vomiting, no abdominal pain. NEUROLOGICAL: No headaches, no weakness, no numbness. HEMATOLOGICAL: Denies any bleeding or petechiae. GENITOURINARY: Denies any burning micturition, frequency, or urgency. MUSCULOSKELETAL/RHEUMATOLOGICAL: Denies any joint pain, swelling, or any muscle pain. ENDOCRINE: Denies any polyuria or polydipsia. The rest of the 14-point review of systems is negative. PHYSICAL EXAMINATION: GENERAL: The patient is alert and oriented x3, not in any acute distress. Well developed, well nourished. Obese HEENT: Pupils are round and equally reacting to light. EOMI. No scleral icterus. No conjunctival pallor. Normocephalic, atraumatic. No pharyngeal erythema. No thyromegaly. CARDIOVASCULAR: S1 and S2 muffled PULMONARY: Diminished breath sounds bilaterally otherwise chest is clear to auscultation, no wheezing or crackles. ABDOMEN: Soft, obese, nontender, nondistended, normoactive bowel sounds. No palpable organomegaly. MUSCULOSKELETAL: No joint swelling or deformity. EXTREMITIES: No cyanosis, clubbing, or pedal edema. NEUROLOGICAL: Gross neurological examination did not reveal any focal deficits. SKIN: No rashes. Assessment: Left side facial weakness with aphasia and left-sided upper and lower extremity weakness, concerns for TIA versus CVA, symptoms have resolved History of CHF Occluded left vertebral artery as noted on CT angiogram Undergoing workup outpatient at [facility] for concerns of cardiac sarcoidosis Hypertension history Hyperlipidemia history Obesity with a BMI 36.4 History of asthma, not in exacerbation Enlarged left thyroid gland nodule/cyst measuring up to 59 x 38 x 25 mm, patient reports is known and following up outpatient. Will need further imaging if not done so previously GI prophylaxis DVT prophylaxis Full code Plan: Patient is admitted under observation with neurology on consult for concerns of TIA versus CVA. Symptoms have resolved although patient had significant left- sided weakness and numbness with left-sided facial drooping and aphasia Home medications reviewed and resumed as appropriate Patient will need outpatient follow-up with neurology as well as his primary fire management specialist and heart failure specialist out of [facility] as he is currently undergoing further treatment and workup regarding possible cardiac sarcoidosis Patient reports symptoms have completely resolved and would like to go home although agreeable to wait for MRI per neurology recommendations Encouraged increase activity as tolerated Will await MRI and per nursing staff tentatively scheduled for 10/21/2024. Possible discharge planning in the next 24 hours The impression and plan of care has been dictated by Brianne Varner, Nurse Practitioner as directed. Dr. Osmar MD I have performed a history and examination and MDM of this patient, discussed the same with the dictator, and agree with the dictator's assessment and plan as written ,documented as a scribe. Based on total visit time, I have performed more than 50% of the visit. Past Medical History Past Medical History: Asthma, Heart Failure, Hypertension Additional Past Medical History / Comment(s): ASTHMA, CHF, ELEVATED CHOLESTEROL, possible cardiac sarcoidsis and goes to [facility], was hospitalized for 30 days and recently d/c 10/13/24 History of Any Multi-Drug Resistant Organisms: None Reported Past Surgical History: Hernia Repair, Joint Replacement, Orthopedic Surgery Additional Past Surgical History / Comment(s): RIGHT KNEE SURGERY, ACL RECONSTRUCTED, left hip replacement Past Anesthesia/Blood Transfusion Reactions: No Reported Reaction Past Psychological History: No Psychological Hx Reported Smoking Status: Never smoker Past Alcohol Use History: None Reported Past Drug Use History: None Reported - Past Family History Father Family Medical History: Congestive Heart Failure (CHF), Coronary Artery Disease (CAD), Diabetes Mellitus Additional Family Medical History / Comment(s): CABG, AT 84, DM Mother Family Medical History: Coronary Artery Disease (CAD) Additional Family Medical History / Comment(s): HEART CONDITION UNSURE OF WHAT Medications and Allergies Home Medications Medication Instructions Recorded Confirmed Type Albuterol Inhaler [Ventolin Hfa 2 puff INHALATION RT-QID PRN 12/21/14 10/19/24 History Inhaler] Albuterol Nebulized [Ventolin 2.5 mg INHALATION RT-QID PRN 10/19/24 10/19/24 History Nebulized] Azelastine HCl [Astelin Nasal 1 spr EA NOSTRIL BID 10/19/24 10/19/[address] [place]] Bumetanide [BUMEX] 6 mg PO BID@0900,1600 10/19/24 10/19/24 History Eplerenone 50 mg PO DAILY 10/19/24 10/19/24 History Ferrous Sulfate [Feosol] 325 mg PO DAILY 10/19/24 10/19/24 History Fluticasone/Umeclidin/Vilanter 1 puff INHALATION RT-DAILY 10/19/24 10/19/24 History [Trelegy Ellipta 200-62.5-25] Magnesium Oxide [Mag-Ox] 400 mg PO DAILY 10/19/24 10/19/24 History Metoprolol Succinate (ER) [Toprol 50 mg PO BID 10/19/24 10/19/24 History Xl] Omeprazole Magnesium [PriLOSEC OTC] 20 mg PO DAILY 10/19/24 10/19/24 History Potassium Chloride ER [K-Dur 20] 20 meq PO DAILY 10/19/24 10/19/24 History Sacubitril/Valsartan [Entresto 97 1 tab PO BID 10/19/24 10/19/24 History mg-103 mg Tablet] Sodium Chloride [Saline Nasal Mist] 1 spr EA NOSTRIL DAILY PRN 10/19/24 10/19/24 History Allergies Allergy/AdvReac Type Severity Reaction Status Date / Time hydromorphone HCl Allergy Confusion Verified 10/19/24 16:52 [From Dilaudid] lidocaine Allergy Unknown Verified 10/19/24 16:52 morphine Allergy Confusion Verified 10/19/24 16:52 carvedilol [From Coreg] AdvReac suicidal Verified 10/19/24 16:52 thoughts while taking, resolved after stopped takin empagliflozin AdvReac suicidal Verified 10/19/24 16:52 [From Jardiance] thoughts while taking, resolved after stopped takin Physical Exam Vitals: Vital Signs Temp Pulse Pulse Resp BP BP Pulse Ox 10/20/24 08:59 83 18 92/61 93 L 10/20/24 07:00 97.5 F L 81 16 97/65 96 10/19/24 20:39 92 18 123/55 97 10/19/24 20:00 97.5 F L 100 14 130/81 98 10/19/24 17:33 90 16 115/83 98 10/19/24 15:40 91 12 115/82 99 10/19/24 15:00 94 18 115/96 10/19/24 14:22 90 18 117/78 97 10/19/24 12:42 97.3 F L 89 20 124/93 97 Intake and Output 10/19/24 10/20/24 10/20/24 22:59 06:59 14:59 Other: # Voids 1 2 Weight 115.212 kg 118.3 kg Results CBC & Chem 7: 10/19/24 12:55 10/19/24 12:55 Labs: Abnormal Lab Results - Last 24 Hours (Table) 10/19/24 10/19/24 10/19/24 Range/Units 12:45 12:55 12:55 RBC 6.79 H (4.30-5.90) m/uL MCV 76.9 L (80.0-100.0) fL MCH 23.2 L (25.0-35.0) pg MCHC 30.1 L (31.0-37.0) g/dL RDW 19.4 H (11.5-15.5) % BUN 22 H (9-20) mg/dL Glucose 114 H (74-99) mg/dL POC Glucose (mg/dL) 115 H (70-110) mg/dL Creatine Kinase 48 L (55-170) U/L Triglycerides (0.00-149.00) mg/dL Cholesterol (0.00-200.00) mg/dL LDL Cholesterol, Calc (0.0-131.0) mg/dL HDL Cholesterol (40.00-60.00) mg/dL 10/19/24 Range/Units 12:55 RBC (4.30-5.90) m/uL MCV (80.0-100.0) fL MCH (25.0-35.0) pg MCHC (31.0-37.0) g/dL RDW (11.5-15.5) % BUN (9-20) mg/dL Glucose (74-99) mg/dL POC Glucose (mg/dL) (70-110) mg/dL Creatine Kinase (55-170) U/L Triglycerides 181.00 H (0.00-149.00) mg/dL Cholesterol 207.00 H (0.00-200.00) mg/dL LDL Cholesterol, Calc 134.3 H (0.0-131.0) mg/dL HDL Cholesterol 36.50 L (40.00-60.00) mg/dL Thrombosis Risk Factor Assmnt - Choose All That Apply Any of the Below Risk Factors Present?: Yes Each Factor Represents 1 point: Age 41-60 years, Obesity (BMI >25) Other Risk Factors: No Other congenital or acquired thrombophilia - If yes, enter type in comment: No Thrombosis Risk Factor Assessment Total Risk Factor Score: 2 Thrombosis Risk Factor Assessment Level: Low Risk
[2024-10-20] MEDS: BUMETANIDE 1 MG TAB PO SCH (16:52)
[2024-10-21 07:38] VITALS: BP 113/74; PULSE 75; RESP 17; TEMP 97.4
[2024-10-21] MEDS: ASPIRIN 81 MG PO SCH (08:31)
[2024-10-21] MEDS: Eplerenone [Eplerenone] 25 MG Tablet PO SCH (10:49)
--- NOTE | 2024-10-21 11:48 | MR ---
EXAMINATION TYPE: MR brain wo/w con DATE OF EXAM: 10/21/2024 COMPARISON: MRI brain November 03, 2016. CT brain 2 days earlier. HISTORY: Facial weakness, dysarthria. TECHNIQUE: Multiplanar, multisequence images of the brain and brainstem is performed without and with IV contras t, utilizing 12 mL intravenous Gadobutrol . FINDINGS: Diffusion weighted images demonstrate no evidence of a recent infarct or other diffusion ab normality. The ventricular system and cisternal spaces are normal in size and appearance. The brain volume is age appropriate. There are some new T2 hyperintense foci scattered throughout the white ma tter bilaterally. Approximately 10 scattered lesions are seen. Lesions are nonspecific in appearance and distribution. There is evidence of old infarct inferior medial aspect of the left cerebellar sacha sphere axial image 5 noted. This is not well seen on CT. Midline structures demonstrate normal morphology. The craniocervical junction appears within normal limits. Post contrast images demonstrate no abnormal enhancement or enhancing masses. The dural veno us sinuses appear patent. [id number] mucosal thickening involving bilateral ethmoid sinuses is redemonstrated. The globes are intact bilaterally. IMPRESSION: 1. More prominent mild nonspecific white matter changes favor product of chronic small vessel ischemi c change in patient of this age. No suspicious enhancement is seen. 2. No MRI evidence for recent infarct. 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 3. Mild to moderate chronic bilateral ethmoid sinus disease again seen. [facility], , 10/21/2024 11:46 AM
--- NOTE | 2024-10-21 15:16 | P.PN ---
Subjective Progress Note Date: 10/21/24 I am following-up with patient and he states he continues to feel back to baseline. No new neurological issues. Objective - Vital Signs Vital signs: Vital Signs Temp 97.4 F L 10/21/24 07:00 Pulse 75 10/21/24 07:00 Resp 17 10/21/24 07:00 BP 113/74 10/21/24 07:00 Pulse Ox 98 10/21/24 07:00 FiO2 Intake & Output 10/20/24 10/21/24 10/21/24 18:59 06:59 18:59 Intake Total 716 118 Balance 716 118 Weight 117.3 kg Intake: Oral 716 118 Other: # Voids 4 2 3 # Bowel Movements 1 - Exam GENERAL: The patient is sitting in a recliner chair and is not in acute distress. NEUROLOGICAL: Higher mental function: The patient is awake, alert, oriented to self, place and time. Patient is following commands. No aphasia and no neglect. Cranial nerves: The pupils are round, equal and reactive to light and accommodation. Visual ricketts are full to confrontation throughout. Extraocular movement is intact no nystagmus is noted. Facial sensation is normal to touch throughout. The facial strength is normal throughout. Hearing is normal bilate rally to hand rub. Tongue is midline and moved [id number] without any difficulty. No dysarthria is noted. Shoulder shrug is normal bilaterally. Motor: Gait is normal. The strength is 5 over 5 throughout. Normal tone and bulk. Cerebellum: Normal finger to nose h bilaterally. Sensation: Sensation is normal to touch throughout. Reflexes (right/left): 2+ uppers and refused lowers to be performed. Plantars are mute bilaterally. Some of the workup during this hospital visit consisted of: TSH is 0.77 Lipid panel is triglycerides 181, cholesterol 207, LDLs 134 and HDL is [address] of the head is reported as no acute bleed or mass effect. Mild chronic inflammatory changes in the maxillary sinus. 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 Diminutive intracranial portion noted of the left vertebral artery possibly occluded and is less contrast in the superior extracranial portion. Dominant right vertebral artery system. No evidence of dissection of cervical internal carotid artery. No any evidence of significant stenosis at the carotid bifurcation. No evidence of intracranial high-grade stenosis or intracranial aneurysm. Left large thyroid gland nodule/cyst. - Labs CBC & Chem 7: 10/19/24 12:55 10/19/24 12:55 Assessment and Plan Assessment: This is a 54-year-old gentleman who present emergency department because of left facial droop, slurring the speech and unsteady walk. His symptoms has resolved. CT head is unremarkable for any acute stroke. CT angiography shows left vertebral artery occlusion from the origin to the C4. Transient ischemic attack Occluded left vertebral artery on the CT angiography Underlying history of congestive heart failure and the patient is in the process of further workup to rule out cardiac sarcoidosis by the [facility] cardiology team. He had a lung biopsy which according to the patient was unremarkable. Plan: MRI of the brain with and without: completed and pending official report. I personally reviewed it and there is no acute ischemia. No need for 2Decho since patient recent cardiac work-up. 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 Continue his home dose of aspirin 81 mg daily. He has not been taking his medication for 7 days. Will avoid dual antiplatelet especially that he needs further extensive workup for cardiac to rule out cardiac sarcoidosis and stated possible possible. I will not start the patient on any statin since in the past he had patent joints. Continue neurochecks Cardiac monitoring PT OT and [employer] are consulted since patient is ambulatory and has no focal deficit but if he does we will consult them For DVT prophylaxis patient is ambulatory Upon discharge recommend the patient to follow-up with a neurologist as an outpatient within 2 to 3 weeks Plan discussed with the patient in detail as well as the primary team nurse practitioner. Time with Patient: Less than 30
--- NOTE | 2024-10-25 08:34 | P.DS ---
Providers Date of admission: 10/19/24 18:08 Attending physician: Reed Mccollum Consults: 10/19/24 18:08 Consult Physician Routine Consulting Provider: Kunal Sandoval Consult Reason/Comments: tia Do you want consulting provider notified?: Yes Primary care physician: Jimmie lAmeida Hospital Course: Final Diagnosis Left side facial weakness with aphasia and left-sided upper and lower extremity weakness, concerns for TIA versus CVA, symptoms have resolved History of CHF Occluded left vertebral artery as noted on CT angiogram Undergoing workup outpatient at [facility] for concerns of cardiac sarcoidosis Hypertension history Hyperlipidemia history Obesity with a BMI 36.4 History of asthma, not in exacerbation Enlarged left thyroid gland nodule/cyst measuring up to 59 x 38 x 25 mm, patient reports is known and following up outpatient. Will need further imaging if not done so previously Discharge Disposition Patient stable for discharge home. He was discharged on aspirin 81 mg daily. Patient to follow-up with his PCP Dr. Jimmie Almeida. He is advised to follow-up with a neurologist in 2 weeks and he states that he would like to establish care at [facility] where he is currently receiving all of his cardiac care. Hospital Course This is a pleasant 54-year-old male who presented to the emergency department with left-sided facial droop along with arthralgia, aphasia, and left sided upper and lower extremity weakness with inability to ambulate with concerns of TIA versus CVA. Patient follows with Dr. Almeida in the outpatient setting with a past medical history of asthma, heart failure, hypertension, hyperlipidemia, currently undergoing further workup regarding possible cardiac sarcoidosis at [facility], morbid obesity. Patient denies smoking alcohol or any illicit drug use. Patient reports shortly after arriving via EMS to the ER symptoms had resolved. Patient WBC at 7.1, hemoglobin was 15.7, platelets 223, sodium 138, potassium 4.5, BUN 22 with a creatinine of 0.91, liver functions within normal limits, troponin negative at 0.012, triglycerides elevated along with cholesterol and TSH was 0.777. Patient did undergo CT brain and impression was no acute bleed or mass effect with mild chronic inflammatory changes in the maxillary sinuses. CT angio was also performed with no evidence of acute intracranial hemorrhage, mass effect, or midline shift and there is an occluded left vertebral artery from its origin to C4 where there is a suspected backfilling from the intracranial portion endotracheal collaterals with no evidence of dissection of the cervical internal carotid arteries no evidence of significant stenosis at the carotid bifurcations and no evidence of intracranial high-grade stenosis or aneurysm. There is a incidental finding of a large left thyroid gland nodule cyst measuring 59 x 38 x 25 mm. Patient reports he did have thyroid enlargement and is following in the outpatient setting regarding these findings. Patient was admitted under observation with neurology on consult. Patient underwent brain MRI which reveals more prominent mild nonspecific white matter changes favored product of chronic small vessel ischemi c change and patient of his age. No suspicious enhancement is seen. 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 Mild to moderate chronic bilateral ethmoid sinus disease seen again. Patient was recommended to discharge on aspirin 81 mg daily. He was not recommended for dual antiplatelet therapy as he has been following up at [facility] and undergoing further diagnostic workup for possible sarcoidosis. He was recommended to follow-up with a neurologist on discharge in 2 weeks and per the patient he would like to establish at [facility]. He is no new complaints and his neurological deficits are completely resolved at this time. He was cleared for discharge home. Please see medication reconciliation for a list of current medications. Thank you for allowing us to participate in the care of this patient. The impression and plan of care has been dictated by Nurse Rene Walker titioner as directed. Dr. Osmar MD I have performed a history and physical examination and medical decision making of this patient, discussed the same with the dictator, and agree with the dictators assessment and plan as written, documented as a scribe. Based on total visit time, I have performed more than 50% of this visit. Patient Condition at Discharge: Stable Plan - Discharge Summary New Discharge Prescriptions: New Aspirin 81 mg PO DAILY #0 tab Continue Albuterol Inhaler [Ventolin Hfa Inhaler] 2 puff INHALATION RT-QID PRN PRN Reason: Shortness Of Breath Sodium Chloride [Saline Nasal Mist] 1 spr EA NOSTRIL DAILY PRN PRN Reason: Congestion Omeprazole Magnesium [PriLOSEC OTC] 20 mg PO DAILY Azelastine HCl [Astelin Nasal [place]] 1 spr EA NOSTRIL BID Metoprolol Succinate (ER) [Toprol XL] 50 mg PO BID Magnesium Oxide [Mag-Ox] 400 mg PO DAILY Albuterol Nebulized [Ventolin Nebulized] 2.5 mg INHALATION RT-QID PRN PRN Reason: Shortness Of Breath Potassium Chloride ER [K-Dur 20] 20 meq PO DAILY Sacubitril/Valsartan [Entresto 97 mg-103 mg Tablet] 1 tab PO BID Ferrous Sulfate [Iron (65 MG Elemental)] 325 mg PO DAILY Eplerenone 50 mg PO DAILY Bumetanide [BUMEX] 6 mg PO BID@0900,1600 Fluticasone/Umeclidin/Vilanter [Trelegy Ellipta 200-62.5-25] 1 puff INHALATION RT-DAILY Discharge Medication List Albuterol Inhaler [Ventolin Hfa Inhaler] 2 puff INHALATION RT-QID PRN 12/21/14 [History] Albuterol Nebulized [Ventolin Nebulized] 2.5 mg INHALATION RT-QID PRN 10/19/24 [History] Azelastine HCl [Astelin Nasal [place]] 1 spr EA NOSTRIL BID 10/19/24 [History] Bumetanide [BUMEX] 6 mg PO BID@0900,1600 10/19/24 [History] Eplerenone 50 mg PO DAILY 10/19/24 [History] Ferrous Sulfate [Iron (65 MG Elemental)] 325 mg PO DAILY 10/19/24 [History] Fluticasone/Umeclidin/Vilanter [Trelegy Ellipta 200-62.5-25] 1 puff INHALATION RT-DAILY 10/19/24 [History] Magnesium Oxide [Mag-Ox] 400 mg PO DAILY 10/19/24 [History] Metoprolol Succinate (ER) [Toprol XL] 50 mg PO BID 10/19/24 [History] Omeprazole Magnesium [PriLOSEC OTC] 20 mg PO DAILY 10/19/24 [History] Potassium Chloride ER [K-Dur 20] 20 meq PO DAILY 10/19/24 [History] Sacubitril/Valsartan [Entresto 97 mg-103 mg Tablet] 1 tab PO BID 10/19/24 [History] Sodium Chloride [Saline Nasal Mist] 1 spr EA NOSTRIL DAILY PRN 10/19/24 [History] Aspirin 81 mg PO DAILY #0 tab 10/21/24 [Rx] Follow up Appointment(s)/Referral(s): Jimmie Almeida MD [Primary Care Provider] - 1-2 days Activity/Diet/Wound Care/Special Instructions: Follow up at [facility] with your care team and recommend to be established with a neurologist Follow up with PCP Dr. Almeida in 1 to 2 days Discharge Disposition: HOME SELF-CARE
== END 2024-10-21 15:10 | disposition home or self-care (01) ==
LOC: SUPCPDRO 12:38 → EC 12:38 → 6NMEDSUR 18:08
PROVIDERS: ADMIT Hospitalist; ATTEND Hospitalist
DX: I65.02 Occlusion and stenosis of left vertebral artery (principal); I11.0 Hypertensive heart disease with heart failure; I50.9 Heart failure, unspecified; E78.5 Hyperlipidemia, unspecified; J45.909 Unspecified asthma, uncomplicated; H57.12 Ocular pain, left eye; E66.01 Morbid (severe) obesity due to excess calories; Z68.36 Body mass index [BMI] 36.0-36.9, adult; E78.1 Pure hyperglyceridemia; E04.1 Nontoxic single thyroid nodule; T39.016A Underdosing of aspirin, initial encounter; Z91.128 Patient's intentional underdosing of medication regimen for other reason; Z79.51 Long term (current) use of inhaled steroids; Z79.899 Other long term (current) drug therapy; Z88.4 Allergy status to anesthetic agent; Z88.5 Allergy status to narcotic agent; Z88.8 Allergy status to other drugs, medicaments and biological substances
CPT/HCPCS: 99285; 36415; 93005; 84481; 80061; 80053; 84443; 82550; 84484; 85025; 85610; 85730; 71046; 70496; 70450; 70498; 70553; G0378 ×3; Q9967; A9585

== ENCOUNTER → 2024-11-18 | Outpatient (CLI) | payer BC ==
[2024-11-18 15:34] LABS: BUN/Creat Ratio 19.45 Ratio (12.00-20.00); Blood Urea Nitrogen 21.4 mg/dL (9.0-27.0); Calcium 9.6 mg/dL (8.7-10.3); Chloride 103 mmol/L (96-109); Glucose 108 mg/dL (70-110); Potassium 4.1 mmol/L (3.5-5.5); Sodium 143 mmol/L (135-145)
[2024-11-18 16:16] LABS: NT-Pro-B-Type Natriuretic Pept 458 pg/mL (0-125)
== END | disposition home or self-care (01) ==
LOC: LABWHC1 10:28
PROVIDERS: ATTEND Internal Medicine
DX: I50.9 Heart failure, unspecified (principal); I42.8 Other cardiomyopathies; D50.9 Iron deficiency anemia, unspecified; D86.85 Sarcoid myocarditis; D86.0 Sarcoidosis of lung; R73.09 Other abnormal glucose
CPT/HCPCS: 36415; 80048; 83880

== ENCOUNTER → 2025-01-26 | Outpatient (CLI) | payer BC ==
--- NOTE | 2025-01-26 14:03 | XR ---
EXAMINATION TYPE: XR foot complete LT DATE OF EXAM: 01/26/2025 1:51 PM COMPARISON: None CLINICAL INDICATION: Male, 54 years old with history of M79.672 Pain left foot, pain TECHNIQUE: XR foot complete LT examined in the AP, oblique, and lateral projections. FINDINGS: No evidence of any acute osseous pathology. Multifocal degeneration changes throughout the joints of the foot with osteophyte formation and joint space narrowing. Incidental note is made of symphalan gism of the 3-5 distal interphalangeal joints. IMPRESSION: No evidence of acute fracture. Multifocal degeneration changes throughout the joints of the foot. [facility], , 01/26/2025 2:01 PM
[2025-01-26 14:18] LABS: African American GFR (CKD) 86 (>60 ml/min/1.73 sqM); Anion Gap 9 mmol/L; Blood Urea Nitrogen 24 mg/dL (9-20); Calcium 9.8 mg/dL (8.4-10.2); Carbon Dioxide 30 mmol/L (22-30); Chloride 100 mmol/L (98-107); Glucose 112 mg/dL (74-99); Non-African American GFR(CKD) 74 (>60 ml/min/1.73 sqM); Potassium 4.3 mmol/L (3.5-5.1); Sodium 139 mmol/L (137-145)
[2025-01-26 14:27] LABS: NT-Pro-B-Type Natriuretic Pept 319 pg/mL
== END | disposition home or self-care (01) ==
LOC: RADXRMAIN 13:26
PROVIDERS: ATTEND Family Medicine
DX: M19.072 Primary osteoarthritis, left ankle and foot (principal); I42.8 Other cardiomyopathies; I50.9 Heart failure, unspecified; I51.9 Heart disease, unspecified
CPT/HCPCS: 80048; 83880